=== PATIENT | male | born 2000 | race Caucasian/White ===

== ENCOUNTER 2019-09-30 18:40 | Emergency (ER) | payer OTHER, BC ==
[2019-09-30] MEDS ORDERED: Fluorescein 1 MG Ophth Strip EYELF ONE (18:52)
[2019-09-30] MEDS ORDERED: Proparacaine 0.5% Ophth Soln 15 ML Bottle EYELF ONE (18:52)
[2019-09-30] MEDS ORDERED: Take Home: Gentamicin 0.3% Ophth Soln 5 ML, 1 Bottle Pack EYEBOTH ONE (19:18)
[2019-09-30] MEDS ORDERED: Take Home: Diclofenac Sodium 0.1% Ophth Soln 5 ML, 1 Bottle Pack EYEBOTH ONE (19:18)
--- NOTE | 2019-09-30 19:37 | EDM.PDOC ---
ED HPI GENERAL MEDICAL PROBLEM - General Chief Complaint: Eye Problems Stated Complaint: METAL IN EYE Time Seen by Provider: 09/30/19 18:50 Source of Information: Reports: Patient History Limitations: Reports: No Limitations - History of Present Illness INITIAL COMMENTS - FREE TEXT/NARRATIVE: Pt. presents to ER with complaints of L eye pain/irritation. Pt. 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 Denies any vision loss or change. Pt. states that the discomfort is isolated to the L eye. Denies any head or facial trauma. Onset: Today Onset Date: 09/30/19 Location: Reports: Other (eye) Quality: Reports: Burning, Sharp Severity: Moderate Left Eye Pain Score (Numeric/FACES): 4 - Related Data Allergies Allergy/AdvReac Type Severity Reaction Status Date / Time Sulfa (Sulfonamide Allergy Other Verified 09/30/19 18:55 Antibiotics) Home Meds: Home Meds . [No Known Home Meds] 09/30/19 [History] Past Medical History - Past Health History Medical/Surgical History: Denies Medical/Surgical History Social & Family History - Tobacco Use Smoking Status *Q: Unknown Ever Smoked ED ROS GENERAL - Review of Systems Review Of Systems: See Below Constitutional: Reports: No Symptoms HEENT: Reports: Eye Discharge, Eye Pain Respiratory: Reports: No Symptoms Cardiovascular: Reports: No Symptoms Endocrine: Reports: No Symptoms GI/Abdominal: Reports: No Symptoms : Reports: No Symptoms Musculoskeletal: Reports: No Symptoms Skin: Reports: No Symptoms Neurological: Reports: No Symptoms Psychiatric: Reports: No Symptoms Hematologic/Lymphatic: Reports: No Symptoms Immunologic: Reports: No Symptoms ED EXAM GENERAL W FULL EYE - Physical Exam Exam: See Below Exam Limited By: No Limitations General Appearance: Alert, WD/WN, No Apparent Distress Eye Exam: Left Eye: Conjunctival Injection, Corneal Abrasion, Foreign Body, Bilateral Eye: EOMI, Normal Fundi, Normal Inspection, PERRL Conjunctiva & Sclera: Left: Conjunctival Edema, Scleral Icterus Cornea Exam: Left: Foreign Body Extraocular Movements: Bilateral: Intact Pupils: Normal Accommodation Pupillary Size: Bilateral: 3 mm Pupillary Reaction: Bilateral: Brisk Anterior Chamber: Bilateral: Normal Appearance Posterior Chamber: Bilateral: Normal Funduscopic ED EYE w/ Add Procedure - Additional/Other Procedure(s) Other (Free Text) Procedure(s) [Text1]: Proparacaine applied to L eye. Examination of L eye reveals a small, subcentimeter foreign body to L eye, 6 o clock position, approx. 2.5 cm from edge of iris. This was partially removed with a cotton tipped applicator. There was some retained material/early rust formation in the area that was removed using odilon brush. Florescein exam of the eye reveals what appears to be a corneal abrasion at the 6 o clock position to the sclera. No obvious material noted to underside of eyelids. Course - Vital Signs Last Recorded V/S: Last Vital Signs Temp 36.8 C 09/30/19 18:43 Pulse 62 09/30/19 18:43 Resp 18 09/30/19 18:43 BP 128/77 09/30/19 18:43 Pulse Ox 97 09/30/19 18:43 - Orders/Labs/Meds Meds: Medications Discontinued Medications Generic Name Dose Route Start Last Admin Trade Name Krzysztof PRN Reason Stop Dose Admin Diclofenac Sodium 1 packet 09/30/19 19:18 Take Home: Diclofenac 0.1% Ophth, 1 Bottle EYEBOTH 09/30/19 19:19 ONETIME ONE Fluorescein Sodium 1 mg 09/30/19 18:52 09/30/19 19:01 Ful-Teresita EYELF 09/30/19 18:53 1 mg ONETIME ONE Administration Gentamicin Sulfate 1 packet 09/30/19 19:18 Take Home: Gentamicin 0.3% Ophth Soln, 1 Zana EYEBOTH 09/30/19 19:19 ONETIME ONE Proparacaine HCl 1 ml 09/30/19 18:52 09/30/19 19:01 Proparacaine 0.5% Ophth Soln EYELF 09/30/19 18:53 1 drop ONETIME ONE Administration Departure - Departure Time of Disposition: 19:39 Disposition: Home, Self-Care 01 Clinical Impression: Corneal foreign body, Corneal abrasion, left, Corneal abrasion - Discharge Information Instructions: Diclofenac injection, Eye Foreign Body, [id number], Corneal Abrasion, [id number], Gentamicin eye drops Forms: ED Department Discharge Additional Instructions: Gentamycin drops 1 drop to L eye 5 times per day for 7 days. Diclofenac drops 1 drop to L eye 3 times per day as needed for pain 5 days Follow-up in eye cliinic of choice tomorrow for slit lamp examination Return to ER if you have any acute vision loss or change. Sepsis Event Note - Evaluation Sepsis Screening Result: No Definite Risk - Focused Exam Vital Signs: Vital Signs Temp Pulse Resp BP Pulse Ox 09/30/19 18:43 36.8 C 62 18 128/77 97 Date Exam was Performed: 09/30/19 Time Exam was Performed: 19:31 - Assessment/Plan Plan: Gentamycin drops 1 drop to L eye 5 times per day for 7 days. Diclofenac drops 1 drop to L eye 3 times per day as needed for pain 5 days Follow-up in eye cliinic of choice tomorrow for slit lamp examination Return to ER if you have any acute vision loss or change.
== END 2019-09-30 19:39 | disposition home or self-care (01) ==
LOC: VM.ED 18:40
DX: T15.02XA Foreign body in cornea, left eye, initial encounter (principal); Z88.2 Allergy status to sulfonamides; X58.XXXA Exposure to other specified factors, initial encounter; Y93.89 Activity, other specified
CPT/HCPCS: 65220; 99283-25; A9270-GY